=== PATIENT | female | born 1945 | race Asian ===

== ENCOUNTER 2016-11-16 14:49 | Emergency (ER) | payer MEDICARE ==
[~2016-11-16] VITALS: Ht 154.9 cm; Wt 58.1 kg
[2016-11-16] MEDS ORDERED: METF500T4 PO (15:07)
[2016-11-16] MEDS ORDERED: ATOR20TA86 PO (15:07)
[2016-11-16] MEDS ORDERED: UNK HTN MED PO (15:07)
[2016-11-16] MEDS ORDERED: IBUPROFEN 600 MG TABLET PO ONE (18:00)
[2016-11-16] MEDS ORDERED: ONDANSETRON HCL 4 MG TABLET PO ONE (18:00)
[2016-11-16 19:25] VITALS: BP 101/54
== END 2016-11-16 19:49 | disposition home or self-care (01) ==
LOC: EMS 14:50
DX: S20.212A Contusion of left front wall of thorax, initial encounter (principal); E11.9 Type 2 diabetes mellitus without complications; E78.00 Pure hypercholesterolemia, unspecified; I10 Essential (primary) hypertension; V49.9XXA Car occupant (driver) (passenger) injured in unspecified traffic accident, initial encounter; Y93.89 Activity, other specified; Y92.89 Other specified places as the place of occurrence of the external cause; Y99.8 Other external cause status
CPT/HCPCS: 71020; 82962; 93005; 99284; Q0162

== ENCOUNTER 2025-03-13 09:10 | Emergency (ER) | payer MEDICAID, MEDICARE ==
[~2025-03-13] VITALS: Ht 152.4 cm; Wt 58.6 kg
[~2025-03-13 09:10] MED LIST: AMOX-426 PO; ATOR20TA PO; LOPE-232 PO; METF-1211 PO
[2025-03-13 09:15] VITALS: TEMP 97.9
[2025-03-13 10:45] VITALS: BP 139/40; PULSE 81; RESP 18; O2SAT 98
[2025-03-13] MEDS: ACETAMINOPHEN 500 MG TABLET PO ONE (10:45)
[2025-03-13] MEDS ORDERED: ACET-66 PO (11:30)
== END 2025-03-13 11:42 | disposition home or self-care (01) ==
LOC: EMS 09:11
DX: S39.012A Strain of muscle, fascia and tendon of lower back, initial encounter (principal); E11.9 Type 2 diabetes mellitus without complications; E78.00 Pure hypercholesterolemia, unspecified; I10 Essential (primary) hypertension; Z79.899 Other long term (current) drug therapy; V89.2XXA Person injured in unspecified motor-vehicle accident, traffic, initial encounter; Y93.89 Activity, other specified; Y92.410 Unspecified street and highway as the place of occurrence of the external cause; Y99.8 Other external cause status
CPT/HCPCS: 72040; 72070; 72100; 99284; Z7502; Z7610